=== PATIENT | female | born 1970 ===

== ENCOUNTER 2018-06-16 19:59 | Emergency (ER) | payer BC ==
[2018-06-16 20:00] VITALS: BMI 28.3
[2018-06-16 21:09] LABS: URINE BILIRUBIN NEGATIVE (NEGATIVE); URINE BLOOD SMALL (NEGATIVE); URINE GLUCOSE (UA) NEGATIVE (NEGATIVE); URINE LEUKOCYTE ESTERASE SMALL Leu/uL (NEGATIVE); URINE PROTEIN TRACE mg/dL (<30 mg/dL); URINE UROBILINOGEN 0.2 E.U./dL (<1 E.U./dL)
[2018-06-16 21:10] LABS: URINE APPEARANCE SLIGHT-CLOUDY (CLEAR); URINE COLOR YELLOW (YELLOW)
[2018-06-16 21:25] LABS: URINE BACTERIA FEW (NEG)
--- NOTE | 2018-06-16 21:28 | ED PDOC ---
Arrival/HPI - General Chief Complaint: Abdominal Pain Time Seen by Provider: 06/16/18 20:14 Historian: Patient - History of Present Illness Narrative History of Present Illness (Text): 06/16/18 20:25 48 year old female with no significant past medical history, presents to the emergency department complaining of nausea, vomiting, and diarrhea associated with abdominal discomfort since yesterday. Patient denies any fever, chills, chest pain, shortness of breath, urinary symptoms, back pain, neck pain, headache, dizziness, or any other complaints. PMD: Dr. Santos Time/Duration: 24 hours Symptom Onset: Sudden Symptom Course: Unchanged Activities at Onset: Light Context: Home Past Medical History - Provider Review Nursing Documentation Reviewed: Yes - Infectious Disease Hx of Infectious Diseases: None - Tetanus Immunization Tetanus Immunization: Up to Date - Past Medical History Past Medical History: No Previous - Cardiac Hx Cardiac Disorders: No - Pulmonary Hx Respiratory Disorders: No - Neurological Hx Neurological Disorder: No - HEENT Hx HEENT Disorder: No - Renal Hx Renal Disorder: Yes Hx Kidney Stones: Yes - Endocrine/Metabolic Hx Endocrine Disorders: No - Hematological/Oncological Hx Blood Disorders: No Hx Blood Transfusions: (unknown) Hx Blood Transfusion Reaction: (unknown) - Integumentary Hx Dermatological Disorder: No - Musculoskeletal/Rheumatological Hx Musculoskeletal Disorders: No - Gastrointestinal Hx Gastrointestinal Disorders: No - Genitourinary/Gynecological Hx Genitourinary Disorders: No - Psychiatric Hx Psychophysiologic Disorder: No Hx Depression: No Hx Emotional Abuse: No Hx Physical Abuse: No Hx Substance Use: No - Surgical History Hx Tubal Ligation: Yes - Anesthesia Hx Anesthesia: Yes Hx Anesthesia Reactions: No Hx Malignant Hyperthermia: No - Suicidal Assessment Feels Threatened In Home Enviroment: No Family/Social History - Physician Review Nursing Documentation Reviewed: Yes Family/Social History: No Known Family HX Smoking Status: Never Smoked Hx Alcohol Use: No Hx Substance Use: No Hx Substance Use Treatment: No Allergies/Home Meds Allergies/Adverse Reactions: Allergies No Known Allergies Allergy (Verified 03/24/15 11:56) Review of Systems - Physician Review All systems were reviewed & negative as marked: Yes - Review of Systems Constitutional: absent: Fevers, Other (Chills) Respiratory: absent: SOB Cardiovascular: absent: Chest Pain Gastrointestinal: Abdominal Pain, Diarrhea, Nausea, Vomiting Genitourinary Female: absent: Dysuria, Frequency, Hematuria Musculoskeletal: absent: Back Pain, Neck Pain Neurological: absent: Headache, Dizziness Physical Exam Vital Signs Reviewed: Yes Vital Signs Temp Pulse Resp BP Pulse Ox 06/16/18 20:08 98.7 F 71 18 117/79 100 Temperature: Afebrile Blood Pressure: Normal Pulse: Regular Respiratory Rate: Normal Appearance: Positive for: Well-Appearing, Non-Toxic, Comfortable Pain Distress: None Mental Status: Positive for: Alert and Oriented X 3 - Systems Exam Head: Present: Atraumatic, Normocephalic Pupils: Present: PERRL Extroacular Muscles: Present: EOMI Conjunctiva: Present: Normal Mouth: Present: Moist Mucous Membranes Neck: Present: Normal Range of Motion Respiratory/Chest: Present: Clear to Auscultation, Good Air Exchange. No: Respiratory Distress, Accessory Muscle Use Cardiovascular: Present: Regular Rate and Rhythm, Normal S1, S2. No: Murmurs Abdomen: Present: Tenderness (Mild diffuse abdominal tenderness). No: Distention, Peritoneal Signs, Guarding Back: Present: Normal Inspection Upper Extremity: Present: Normal Inspection. No: Cyanosis, Edema Lower Extremity: Present: Normal Inspection. No: Edema Neurological: Present: GCS=15, CN II-XII Intact, Speech Normal Skin: Present: Warm, Dry, Normal Color. No: Rashes Psychiatric: Present: Alert, Oriented x 3, Normal Insight, Normal Concentration Medical Decision Making ED Course and Treatment: 06/16/18 20:10 Impression: 48 year old female presents complaining of nausea, vomiting, and diarrhea associated with abdominal discomfort that began yesterday. Plan: -- EKG -- Labs -- Pepcid, IV Fluids, Toradol, Zofran Inj -- Urine Culture -- Urinalysis w/ micro -- Abdomen Complete US -- Reassess and disposition Progress Notes: 06/16/18 21:55 EKG shows NSR at 61 BPM with normal EKG. Interpreted by me. EXAM: US Abdomen Complete Electronically signed on Jun 16, 2018 10:24:41 PM EDT by: Primitivo Carrera M.D. IMPRESSION: Fatty liver. No acute pathology. EXAM: CT SCAN OF THE ABDOMEN AND PELVIS WITH CONTRAST. Electronically signed on Jun 17, 2018 1:31:06 AM EDT by: Abbas Chamsuddin, M.D. IMPRESSION: 1.2x0.7 cm stone and has slipped from the distal third of the right ureter to the level of the right ureterovesical junction. Unchanged mild right hydroureteronephrosis. Associated mild right urothelial thickening. 2.5 cm right ovarian ruptured follicle/corpus luteum cyst. Interval appearance of mild effusion in the pelvic cul-de-sac. 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 06/17/18 01:45 On re-evaluation, patient feels better and is in no acute distress. I have discussed the results and plan with the patient, who expresses understanding. Patient in agreement with plan to be discharged home. Patient is stable for discharge. Patient was instructed to follow up with physician or return if symptoms worsen or new concerning symptoms arise. - Lab Interpretations Lab Results: Lab Results 06/16/18 20:52: Urine Color Yellow, Urine Appearance Slight-cloudy, Urine pH 6.0, Ur Specific [place] >= 1.030, Urine Protein Trace H, Urine Glucose (UA) N egative, Urine Ketones Negative, Urine Blood Small H, Urine Nitrate Positive H, Urine Bilirubin Negative, Urine Urobilinogen 0.2, Ur Leukocyte Esterase Small H, Urine RBC Pending, Urine WBC Pending I have reviewed the lab results: Yes - RAD Interpretation Radiology Orders: 06/16/18 20:37 ABDOMEN COMPLETE [US] Stat - EKG Interpretation Interpreted by ED Physician: Yes Type: 12 lead EKG - Medication Orders Current Medication Orders: Sodium Chloride (Sodium Chloride 0.9%) 1,000 mls @ 999 mls/hr IV .Q1H1M STA Stop: 06/16/18 21:39 Discontinued Medications Famotidine (Pepcid) 20 mg IVP STAT STA Stop: 06/16/18 20:41 Ketorolac Tromethamine (Toradol) 30 mg IVP ONCE ONE Stop: 06/16/18 20:40 Ondansetron HCl (Zofran Inj) 4 mg IVP ONCE ONE Stop: 06/16/18 20:40 - Scribe Statement The provider has reviewed the documentation as recorded by the Yo Nova Provider Scribe Attestation: All medical record entries made by the Yo were at my direction and personally dictated by me. I have reviewed the chart and agree that the record accurately reflects my personal performance of the history, physical exam, medical decision making, and the department course for this patient. I have also personally directed, reviewed, and agree with the discharge instructions and disposition. Disposition/Present on Arrival - Present on Arrival Any Indicators Present on Arrival: No History of DVT/PE: No History of Uncontrolled Diabetes: No Urinary Catheter: No History of Decub. Ulcer: No History Surgical Site Infection Following: None - Disposition Have Diagnosis and Disposition been Completed?: Yes Diagnosis: Gastroenteritis, Nephrolithiasis, Ovarian cyst, UTI (urinary tract infection) Disposition: HOME/ ROUTINE Disposition Time: 01:48 Patient Plan: Discharge Condition: GOOD Discharge Instructions (ExitCare): Kidney Stones (DC), Urinary Tract Infection, Adult (DC), Ovarian Cyst (DC), Gastroenteritis (ED) Additional Instructions: Drink plenty of liquids/take meds as prescribed/advance diet slowly as tolerated/follow up with your doctor this week Prescriptions: Cephalexin [cephalexin] 500 mg PO BID #10 cap Ondansetron [Zofran Odt] 4 mg PO Q6 PRN #10 odt PRN Reason: Nausea/Vomiting Referrals: Caroline Santos MD [Primary Care Provider] - Follow up with primary Forms: [facility] (Hebrew), WORK NOTE
[2018-06-16] MEDS: Sodium Chloride 0.9% 1,000 ML IV STA (21:41)
[2018-06-16 21:46] LABS: HEMOGLOBIN 12.9 g/dL (12.0-16.0); MEAN CELL VOLUME 90.2 fl (80.0-105.0); MEAN CORPUSCULAR HEMOGLOBIN 29.3 pg (25.0-35.0); MEAN CORPUSCULAR HGB CONC 32.4 g/dl (31.0-37.0); RBC 4.41 10^6/uL (3.5-6.1); RED CELL DISTRIBUTION WIDTH 13.1 % (11.5-14.5); WHITE BLOOD COUNT 7.4 10^3/uL (4.5-11.0)
[2018-06-16 22:00] LABS: ALB/GLOB RATIO 1.1 (1.1-1.8); ALBUMIN 4.1 g/dL (3.0-4.8); ALT/SGPT 38 U/L (7-56); AST/SGOT 28 U/L (14-36); BLOOD UREA NITROGEN 13 mg/dL (7-21); CALCIUM 8.8 mg/dL (8.4-10.5); GFR NON-AFRICAN AMERICAN > 60; LIPASE 101 U/L (23-300)
[2018-06-16] MEDS ORDERED: Iohexol 350 MG/100 ML VIAL ONE (23:37)
[2018-06-17 02:01] VITALS: BP 117/61; PULSE 70; RESP 18; TEMP 97.9; O2SAT 98
--- NOTE | 2018-06-17 09:27 | US ---
Date of service: 06/16/2018 HISTORY: pain COMPARISON: None. TECHNIQUE: Sonographic evaluation of the abdomen. FINDINGS: LIVER: Measures 14.4 cm. Patent portal vein. Portal venous flow: Hepatopetal. Unremarkable echogenicity of the liver parenchyma. No mass. No intrahepatic bile duct dilatation. GALLBLADDER: Unremarkable. No gallstones. COMMON BILE DUCT: Measures 4.5 mm. No stones. No dilatation. PANCREAS: Unremarkable as visualized. No mass. No ductal dilatation. Portions of the pancreatic tail are obscured by overlying bowel gas. RIGHT KIDNEY: Measures 4.6 x 10.4cm. Normal echogenicity. No calculus, mass, or hydronephrosis. LEFT KIDNEY: Measures 6.5 x 10.2cm. Normal echogenicity. No calculus, mass, or hydronephrosis. SPLEEN: Normal in size and contour. No mass. AORTA: No aneurysmal dilatation. IVC: Unremarkable. OTHER FINDINGS: None. IMPRESSION: No significant or acute findings to account for/ related to the clinical presentation. Additional benign and/or incidental findings described above. Concordant findings (preliminary report) provided by [facility].
--- NOTE | 2018-06-17 09:46 | CT ---
Date of service: 06/16/2018 PROCEDURE: CT Abdomen and Pelvis with contrast HISTORY: abdominal pain COMPARISON: 03/24/2015 CT TECHNIQUE: Contrast dose: 100 cc of Omni 350 Radiation dose: Total exam DLP = 435.83 mGy-cm. This CT exam was performed using one or more of the following dose reduction techniques: Automated exposure control, adjustment of the mA and/or kV according to patient size, and/or use of iterative reconstruction technique. FINDINGS: LOWER THORAX: Unremarkable. LIVER: Unremarkable. No gross lesion or ductal dilatation. GALLBLADDER AND BILE DUCTS: Unremarkable. PANCREAS: Unremarkable. No gross lesion or ductal dilatation. SPLEEN: Unremarkable. ADRENALS: Unremarkable. No mass. KIDNEYS AND URETERS: On the previous study a 9 mm stone can be seen in the right distal ureter. That stone has now migrated into the right UVJ and is seen near the internal orifice of the bladder. Inflammatory changes are also seen with enhancement and thickening of the urothelium adjacent to the stone. Despite the size of the stone there is no evidence of hydronephrosis VASCULATURE: Unremarkable. No aortic aneurysm. No aortic atherosclerotic calcification or mural plaque present. BOWEL: Unremarkable. No obstruction. No gross mural thickening. APPENDIX: Normal appendix. PERITONEUM: Unremarkable. No free fluid. No free air. LYMPH NODES: Unremarkable. No enlarged lymph nodes. BLADDER: Unremarkable. REPRODUCTIVE: There is an enhancing thick-walled cyst in the right ovary consistent with a recent cyst rupture. BONES: No acute fracture. OTHER FINDINGS: The report concurs with the preliminary [facility] report IMPRESSION: On the previous study a 9 mm stone can be seen in the right distal ureter. That stone has now migrated into the right UVJ and is seen near the internal orifice of the bladder. Inflammatory changes are also seen with enhancement and thickening of the urothelium adjacent to the stone.
--- NOTE | 2018-06-17 12:01 | CARD ---
APPROVED REPORT Date of service: 06/16/2018 EKG Measurement Heart [id number] <Conclusion> Normal sinus rhythm Normal ECG
== END 2018-06-17 02:02 | disposition home or self-care (01) ==
LOC: ED 19:59
DX: K52.9 Noninfective gastroenteritis and colitis, unspecified (principal); N20.0 Calculus of kidney; N83.201 Unspecified ovarian cyst, right side; N39.0 Urinary tract infection, site not specified